=== PATIENT | male | born 1950 | race Caucasian/White ===

== ENCOUNTER 2019-05-25 16:04 | Outpatient (CLI) | payer BC ==
--- NOTE | 2019-05-26 14:04 | XRAY Report ---
Reason: PAIN EDEMA, 1ST MP JT, R HALLUX Procedure Date: 05/25/2019 Accession Number: [id number] / [id number] Procedure: XR - Foot 3 View RT CPT Code: FULL RESULT: EXAM: RIGHT FOOT RADIOGRAPHY EXAM DATE: 05/25/2019 04:14 PM. CLINICAL HISTORY: Pain and edema at first MTP joint, right hallux. COMPARISON: None. TECHNIQUE: 3 views. FINDINGS: Bones: Proliferative hypertrophy of the sesamoids plantar to the first MTP is noted which demonstrate lucency and fragmentation suggestive of chronic fracture versus erosions. No fracture is detected. Joints: Erosive periarticular changes are seen in the region of the first metatarsophalangeal joint. No acute dislocation. Soft Tissues: There is increasing periarticular soft tissue swelling with soft tissue calcifications surrounding the first metatarsophalangeal joint. 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 A sesamoid fracture may also be present though this appearance could be explained by the suspected crystalline arthropathy. [facility]
== END 2019-05-25 16:05 | disposition home or self-care (01) ==
LOC: DI 16:04
PROVIDERS: ATTEND Podiatrist
DX: M79.671 Pain in right foot (principal); M79.89 Other specified soft tissue disorders

== ENCOUNTER 2019-06-17 13:35 | Outpatient (CLI) | payer BC | END 2019-06-17 13:36 | disposition home or self-care (01) | LOC: LAB 13:35 | PROVIDERS: ATTEND Podiatrist | DX: M10.071 Idiopathic gout, right ankle and foot (principal) | CPT/HCPCS: 36415; 84550 ==